=== PATIENT | male | born 1950 | race Caucasian/White ===

== ENCOUNTER → 2016-12-04 | Outpatient (CLI) | payer OTHER, MEDICARE | LOC: CAT 10:42 | DX: S09.90XD Unspecified injury of head, subsequent encounter (principal); X58.XXXD Exposure to other specified factors, subsequent encounter ==

== ENCOUNTER → 2016-12-17 | Outpatient (CLI) | payer OTHER, MEDICARE ==
[2016-12-17 13:49] LABS: CREATININE 1.3 mg/dL (0.7-1.3)
== END ==
LOC: MRI 07:50
PROVIDERS: Family Medicine
DX: R51 Headache (principal); S09.90XA Unspecified injury of head, initial encounter; X58.XXXA Exposure to other specified factors, initial encounter

== ENCOUNTER 2017-02-17 14:09 | Emergency (ER) | payer OTHER, MEDICARE ==
[~2017-02-17] VITALS: Ht 188 cm; Wt 99.8 kg
[2017-02-17] MEDS ORDERED: FLOVENT HFA 2220 MCG INH (14:50)
[2017-02-17] MEDS ORDERED: ATIVAN1 MG PO (14:51)
[2017-02-17] MEDS ORDERED: ADVAIR HFA 230M12 GM INH (14:52)
[2017-02-17 15:23] LABS: ABSOLUTE NEUTROPHILS 4.5 thou/uL (1.4-8.2); BASOPHILS 0.7 % (0.0-2.0); EOSINOPHILS 3.6 % (0.0-3.0); HEMATOCRIT 51.1 % (42.0-52.0); HEMOGLOBIN 17.6 gm/dL (14.0-18.0); LYMPHOCYTES 30.1 % (24.0-44.0); MCH 30.5 pg (26.0-34.0); MCHC 34.5 g/dL (28.0-37.0); MCV 88.5 fL (80.0-100.0); MONOCYTES 11.1 % (1.0-8.0); PLATELET COUNT 246 thou/uL (150-400); POLYS 54.5 % (36.0-66.0); RBC 5.78 mil/uL (4.50-6.00); RDW 15.2 % (10.5-14.5); WBC 8.2 thou/uL (4.0-11.0)
[2017-02-17 15:24] LABS: MANUAL DIFF NO
[2017-02-17 15:29] LABS: CALCIUM 9.3 mg/dL (8.5-10.1); CREATININE 1.3 mg/dL (0.7-1.3); POTASSIUM 4.4 mmol/L (3.5-5.1)
[2017-02-17 15:36] LABS: ALBUMIN 4.1 g/dL (3.4-5.0); TOTAL BILIRUBIN 0.3 mg/dL (<0.1-1.0); TOTAL PROTEIN 7.4 g/dL (6.4-8.2)
[2017-02-17 15:45] LABS: PROTIME 9.5 Seconds (9.3-11.4)
[2017-02-17] MEDS ORDERED: LIPITOR10 MG PO (15:46)
[2017-02-17] MEDS ORDERED: PROZAC20 MG PO (15:47)
[2017-02-17] MEDS ORDERED: AMARYL2 M1 PO (15:47)
[2017-02-17] MEDS ORDERED: GLUCOPHAGE XR750 MG PO (15:47)
[2017-02-17] MEDS ORDERED: OLANZAPINE5 MG PO (15:48)
[2017-02-17] MEDS ORDERED: INVOKANA300 MG PO (15:48)
[2017-02-17] MEDS ORDERED: CLONAZEPAM 1 MG1 M1 PO (15:48)
[2017-02-17] MEDS ORDERED: LEVOTHYROXINE0.05 MG PO (15:49)
[2017-02-17 18:46] VITALS: BP 131/66
== END 2017-02-17 18:55 | disposition home or self-care (01) ==
LOC: ER 14:09
PROVIDERS: Physician Assistant
DX: S09.90XA Unspecified injury of head, initial encounter (principal); J45.909 Unspecified asthma, uncomplicated; F31.9 Bipolar disorder, unspecified; Z98.890 Other specified postprocedural states; W01.0XXA Fall on same level from slipping, tripping and stumbling without subsequent striking against object, initial encounter; Y93.89 Activity, other specified; Y92.89 Other specified places as the place of occurrence of the external cause; Y99.8 Other external cause status

== ENCOUNTER → 2018-11-25 | Outpatient (CLI) | payer OTHER, MEDICARE ==
[~2018-11-25] MED LIST: ADVAIR HFA 230M12 GM INH; AMARYL2 M1 PO; ATIVAN1 MG PO; CLONAZEPAM 1 MG1 M1 PO; FLOVENT HFA 2220 MCG INH; GLUCOPHAGE XR750 MG PO; INVOKANA300 MG PO; LEVOTHYROXINE0.05 MG PO; LIPITOR10 MG PO; OLANZAPINE5 MG PO; PROZAC20 MG PO
== END ==
LOC: RAD 10:41
DX: M48.56XA Collapsed vertebra, not elsewhere classified, lumbar region, initial encounter for fracture (principal); M47.26 Other spondylosis with radiculopathy, lumbar region

== ENCOUNTER → 2019-03-08 | Outpatient (CLI) | payer OTHER, MEDICARE | LOC: RAD 11:58 | DX: M41.86 Other forms of scoliosis, lumbar region (principal); M25.78 Osteophyte, vertebrae; M48.05 Spinal stenosis, thoracolumbar region; M47.816 Spondylosis without myelopathy or radiculopathy, lumbar region ==

== ENCOUNTER → 2020-10-22 | Outpatient (CLI) | payer OTHER, MEDICARE | LOC: RAD 08:18 | PROVIDERS: ATTEND Internal Medicine Pulmonary Disease | DX: R06.00 Dyspnea, unspecified (principal) ==